=== PATIENT | female | born 1970 | race Caucasian/White ===

== ENCOUNTER 2016-11-30 21:51 | Emergency (ER) | payer BC, OTHER ==
[2016-11-30 22:00] VITALS: BP 129/92
[2016-11-30] MEDS ORDERED: Tenecteplase 50 MG Kit ONE (22:08)
[2016-11-30] MEDS ORDERED: Heparin Sodium 10,000 Units/1 ML MDV IVPUSH ONE ×2 (22:13→22:17)
[2016-11-30] MEDS ORDERED: Heparin Sodium/D5W 25,000 UNITS/500 ML BAG ONE ×2 (22:13→22:15)
[2016-11-30] MEDS ORDERED: Heparin Sodium 5,000 Units/ML Vial ONE (22:13)
[2016-11-30] MEDS ORDERED: Tenecteplase 50 MG Kit IV SCH (22:15)
[2016-11-30] MEDS ORDERED: Heparin Sodium/D5W 25,000 UNITS/500 ML BAG IV SCH (22:15)
--- NOTE | 2016-11-30 22:15 | EDM.PDOC ---
ED HISTORY OF PRESENT ILLNESS - General Chief Complaint: Chest Pain Stated Complaint: [facility] Time Seen by Provider: 11/30/16 21:51 - History of Present Illness INITIAL COMMENTS - FREE TEXT/NARRATIVE: 46-year-old female presents to the emergency room via [facility] with chest pain. This pain started around 8:00 about the time this evening. The patient describes it as a substernal chest pain with pain in her left hand and forearm. She activated EMS administered aspirin and 2 squirts of nitroglycerin she was nearly pain-free after this she was quite anxious she received 2 doses of morphine and is calm down her anxiety she remained pain free after this patient was transferred with stable vital signs to our emergency room where repeat EKG showed inferior septal lateral DC. Past medical history is most significant a family history of a father who had his first DC in the 40s the patient is treated for hypertension and hyperlipidemia. The patient is a smoker. She is not on routine aspirin she has had chest pain many years ago had a stress test over 7 years ago. This was reported as normal by the patient. The patient has not had any recent procedures including eye surgeries she does not have any bleeding problems and is not on any blood thinners. - Related Data Allergies/ADRs: Allergies Allergy/AdvReac Type Severity Reaction Status Date / Time latex Allergy Rash Verified 11/30/16 22:01 Home Meds: Home Meds Atenolol [Tenormin] 50 mg PO BEDTIME 11/30/16 [History] Lisinopril 20 mg PO DAILY 11/30/16 [History] QUEtiapine Fumarate [Quetiapine Fumarate] 50 mg PO BID 11/30/16 [History] QUEtiapine Fumarate [Quetiapine Fumarate] 100 mg PO BEDTIME 11/30/16 [History] Simvastatin [Zocor] 5 mg PO DAILY 11/30/16 [History] lamoTRIgine 200 mg PO DAILY 11/30/16 [History] Social & Family History - Tobacco Use Smoking Status *Q: Current Every Day Smoker Years of Tobacco use: 32 - Alcohol Use Days Per Week of Alcohol Use: 0 - Recreational Drug Use Recreational Drug Use: No ED ROS GENERAL - Review of Systems Review Of Systems: See Below Constitutional: Reports: no symptoms. Denies: fever, chills HEENT: Reports: No symptoms Respiratory: Reports: No Symptoms Cardiovascular: Reports: Chest pain, Blood pressure problem. Denies: Dyspnea on exertion, Edema, Palpitations GI/Abdominal: Reports: No symptoms : Reports: no symptoms Neurological: Reports: No Symptoms ED EXAM, GENERAL - Physical Exam Exam: See Below Exam Limited By: No limitations General Appearance: alert, no apparent distress Ears: normal external exam, normal canal Nose: normal inspection, normal mucosa, no blood Throat/Mouth: Normal inspection, Normal lips, Normal teeth, Normal gums, Normal oropharynx, Normal voice, No airway compromise Head: atraumatic, normocephalic Neck: normal inspection, supple, non-tender, full range of motion. No: lymphadenopathy (L), lymphadenopathy (R) Respiratory/Chest: no respiratory distress, lungs clear, normal breath sounds GI/Abdominal: normal bowel sounds, soft, non tender, no organomegaly Extremities: normal inspection, no pedal edema Neurological: alert, oriented, normal cognition Skin Exam: Warm, Dry, Intact EKG INTERPRETATION EKG Date: 11/30/16 Rhythm: NSR [place]: normal P-wave: present QRS: normal ST-T: other (Significant ST elevation inferiorly septal and lateral no appreciable reciprocal changes. Right-sided leads were obtained that shows elevation in the context of her right-sided EKG and V3 V2 to a lesser degree the to V3 V4) QT: normal Comparison: NA - no prior EKG EKG Interpretation Comments: Acute DC Course - Vital Signs Last Recorded V/S: Last Vital Signs Temp 37.0 C 11/30/16 21:55 Pulse 64 11/30/16 21:55 Resp 18 11/30/16 21:55 BP 129/92 H 11/30/16 21:55 Pulse Ox 100 11/30/16 21:55 - Orders/Labs/Meds Orders: Active Orders 24 hr Category Date Time Status EKG 12 Lead [EKG Documentation Completion] [RC] STAT Care 11/30/16 22:06 Active EKG 12 Lead [EKG Documentation Completion] [RC] STAT Care 11/30/16 22:07 Active Chest 1V Frontal [CR] Stat Exams 11/30/16 22:21 Taken CBC W/O DIFF,HEMOGRAM [HEME] MOTH@0700 Lab 12/03/16 07:00 Ordered CBC W/O DIFF,HEMOGRAM [HEME] MOTH@0700 Lab 12/06/16 07:00 Ordered CBC W/O DIFF,HEMOGRAM [HEME] MOTH@0700 Lab 12/10/16 07:00 Ordered CBC W/O DIFF,HEMOGRAM [HEME] MOTH@0700 Lab 12/13/16 07:00 Ordered CBC W/O DIFF,HEMOGRAM [HEME] MOTH@0700 Lab 12/17/16 07:00 Ordered CBC W/O DIFF,HEMOGRAM [HEME] MOTH@0700 Lab 12/20/16 07:00 Ordered CBC WITH MANUAL DIFF [HEME] Stat Lab 11/30/16 22:02 Results COMPREHENSIVE METABOLIC PN,CMP [CHEM] Stat Lab 11/30/16 22:02 Received INR,PT,PROTHROMBIN TIME [COAG] Stat Lab 11/30/16 22:02 Received PTT,PARTIAL THROMBOPLSTIN TIME [COAG] Stat Lab 11/30/16 22:02 Received TROPONIN I [CHEM] Stat Lab 11/30/16 22:02 Received Heparin Sodium/D5W [Heparin 25,000 Units in D5W 500 ML] Med 11/30/16 22:15 Ordered 25,000 units in 500 ml IV TITRATE Tenecteplase [Tnkase] Med 11/30/16 22:15 Active 35 mg IV STAT Medication Orders Heparin Sodium/Dextrose (Heparin 25,000 Units In D5w 500 Ml) 25,000 units in 500 mls @ 960.164 mls/hr IV TITRATE KIRAN PRN Reason: 756 UNITS/KG/HR Tenecteplase (Tnkase) 35 mg IV STAT KIRAN PRN Reason: Protocol Last Admin: 11/30/16 22:16 Dose: 35 mg Labs: Laboratory Tests 11/30/16 Range/Units 22:02 WBC 13.35 H (3.98-10.04) K/mm3 RBC 4.80 (3.98-5.22) M/mm3 Hgb 14.9 (11.2-15.7) gm/L Hct 43.8 (34.1-44.9) % MCV 91.3 (79.4-94.8) fl MCH 31.0 (25.6-32.2) pg MCHC 34.0 (32.2-35.5) g/dl RDW Std Deviation 46.2 (36.4-46.3) fL Plt Count 199 (182-369) K/mm3 MPV 11.2 (9.4-12.3) fl Meds: Medications Generic Name Dose Route Start Last Admin Trade Name Frewinnie PRN Reason Stop Dose Admin Heparin Sodium/Dextrose 25,000 units in 500 mls @ 960.164 mls/hr 11/30/16 22: 15 Heparin 25,000 Units In D5w 500 Ml IV TITRATE KIRAN 756 UNITS/KG/HR Tenecteplase 35 mg 11/30/16 22:15 11/30/16 22:16 Tnkase IV 35 mg STAT KIRAN Administration Protocol Discontinued Medications Generic Name Dose Route Start Last Admin Trade Name Freq PRN Reason Stop Dose Admin Heparin Sodium (Porcine) 3,780 units 11/30/16 22:13 Heparin Sodium IVPUSH 11/30/16 22:14 .BOLUS ONE Heparin Sodium (Porcine) Confirm 11/30/16 22:13 Heparin Sodium Administered 11/30/16 22:14 Dose 5,000 units .ROUTE .STK-MED ONE Heparin Sodium (Porcine) 3,780 units 11/30/16 22:17 Heparin Sodium IVPUSH 11/30/16 22:18 .BOLUS ONE Heparin Sodium/Dextrose Confirm 11/30/16 22:13 Heparin 25,000 Units In D5w 500 Ml Administered 11/30/16 22:14 Dose 25,000 units in 500 mls @ as directed .ROUTE .STK-MED ONE Heparin Sodium/Dextrose Confirm 11/30/16 22:15 Heparin 25,000 Units In D5w 500 Ml Administered 11/30/16 22:16 Dose 25,000 units in 500 mls @ as directed .ROUTE .STK-MED ONE Tenecteplase Confirm 11/30/16 22:08 Tnkase Administered 11/30/16 22:09 Dose 50 mg .ROUTE .STK-MED ONE - Re-Assessments/Exams Free Text/Narrative Re-Assessment/Exam: 11/30/16 22:35 She was rapidly assessed and deemed to have a STEMI case discussed with Dr. Hernandez relays draftsperson director pharmacology at [facility] case discussed with Dr. Saldivar ER physician at [facility] who had a chance to review the initial EKG patient received thrombolytics and heparin. The patient received nitroglycerin in route to here by EMS and aspirin. She was for the most part pain-free here in the emergency department. Patient her is her flow by helicopter left emergency room in stable but guarded condition Dr. Saldivar has been updated at the time of departure the patient. Departure - Departure Time of Disposition: 22:36 Disposition: Home, Self-Care 01 Clinical Impression: STEMI (ST elevation myocardial infarction) Forms: ED Department Discharge - My Orders Last 24 Hours: My Active Orders 11/30/16 22:06 EKG 12 Lead [EKG Documentation Completion] [RC] STAT 11/30/16 22:07 EKG 12 Lead [EKG Documentation Completion] [RC] STAT 11/30/16 22:15 Heparin Sodium/D5W [Heparin 25,000 Units in D5W 500 ML] 25,000 units in 500 ml IV TITRATE Tenecteplase [Tnkase] 35 mg IV STAT 12/03/16 07:00 CBC W/O DIFF,HEMOGRAM [HEME] MOTH@0700 12/06/16 07:00 CBC W/O DIFF,HEMOGRAM [HEME] MOTH@0712/10/16 07:00 CBC W/O DIFF,HEMOGRAM [HEME] MOTH@0712/13/16 07:00 CBC W/O DIFF,HEMOGRAM [HEME] MOTH@0712/17/16 07:00 CBC W/O DIFF,HEMOGRAM [HEME] MOTH@0700 12/20/16 07:00 CBC W/O DIFF,HEMOGRAM [HEME] MOTH@0700 - Assessment/Plan Last 24 Hours: My Active Orders 11/30/16 22:06 EKG 12 Lead [EKG Documentation Completion] [RC] STAT 11/30/16 22:07 EKG 12 Lead [EKG Documentation Completion] [RC] STAT 11/30/16 22:15 Heparin Sodium/D5W [Heparin 25,000 Units in D5W 500 ML] 25,000 units in 500 ml IV TITRATE Tenecteplase [Tnkase] 35 mg IV STAT 12/03/16 07:00 CBC W/O DIFF,HEMOGRAM [HEME] MOTH@0712/06/16 07:00 CBC W/O DIFF,HEMOGRAM [HEME] MOTH@69912/10/16 07:00 CBC W/O DIFF,HEMOGRAM [HEME] MOTH@0700 12/13/16 07:00 CBC W/O DIFF,HEMOGRAM [HEME] MOTH@0712/17/16 07:00 CBC W/O DIFF,HEMOGRAM [HEME] MOTH@0712/20/16 07:00 CBC W/O DIFF,HEMOGRAM [HEME] MOTH@07
[2016-11-30] MEDS ORDERED: Heparin Sodium 5,000 Units/ML Vial IVPUSH ONE (22:20)
--- NOTE | 2016-12-02 09:26 | CR ---
Chest: Portable view of the chest was obtained. Comparison: Previous chest x-ray of 04/26/14. Heart size and mediastinum are normal. Lungs are clear with no acute infiltrates. Bony structures are grossly intact. Minimal scoliosis is noted. Impression: 1. Nothing acute is identified on portable chest x-ray. Diagnostic code #2
== END 2016-11-30 22:33 | disposition home or self-care (01) ==
LOC: JD.ED 21:51
DX: I21.3 ST elevation (STEMI) myocardial infarction of unspecified site (principal); F17.210 Nicotine dependence, cigarettes, uncomplicated; Z91.040 Latex allergy status; Z79.899 Other long term (current) drug therapy
CPT/HCPCS: 36415; 71010; 80053; 84484; 85025; 85610; 85730; 93005; 96374; 96375; 99285; J1644; J3101

== ENCOUNTER 2019-01-19 18:04 | Emergency (ER) | payer MEDICAID, OTHER ==
[2019-01-19 18:26] VITALS: BP 148/115
[2019-01-19] MEDS ORDERED: Lidocaine 1% 10 ML MDV INJECT ONE (18:27)
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
== END 2019-01-19 18:57 | disposition home or self-care (01) ==
LOC: JD.ED 18:04
DX: S61.432A Puncture wound without foreign body of left hand, initial encounter (principal); E78.00 Pure hypercholesterolemia, unspecified; I10 Essential (primary) hypertension; Z79.899 Other long term (current) drug therapy; W26.0XXA Contact with knife, initial encounter
CPT/HCPCS: 12001; 99283; J2001; 99282

== ENCOUNTER 2019-01-25 17:30 | Emergency (ER) | payer MEDICAID ==
[2019-01-25 17:38] VITALS: BP 164/99
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
== END 2019-01-25 19:09 | disposition home or self-care (01) ==
LOC: JD.ED 17:30
DX: Z76.0 Encounter for issue of repeat prescription (principal); I10 Essential (primary) hypertension; F17.210 Nicotine dependence, cigarettes, uncomplicated; Z91.040 Latex allergy status; Z98.890 Other specified postprocedural states
CPT/HCPCS: 99281; 99283